=== PATIENT | male | born 1980 | race Two or more races ===

== ENCOUNTER 2020-05-08 20:03 | Emergency (ER) | payer SELFPAY ==
[~2020-05-08] VITALS: Ht 167.6 cm; Wt 65.0 kg
[2020-05-08] MEDS ORDERED: KETOROLAC 15MG/ML VIAL IV ONE (20:45)
[2020-05-08] MEDS ORDERED: MAGNESIUM/ALUMINUM HYDROXIDE/SIMETHICONE 30ML UDC PO ONE (21:00)
[2020-05-08] MEDS ORDERED: SODIUM CHLORIDE 0.9% 1,000 ML IV ONE (21:00)
[2020-05-08] MEDS ORDERED: ONDANSETRON HCL 4MG/2ML INJ IV ONE (21:00)
[2020-05-08] MEDS ORDERED: FAMOTIDINE 20MG/2ML VIAL IV ONE (21:00)
[2020-05-08 21:39] LABS: *BENZODIAZEPINES SCREEN URINE NEGATIVE (NEGATIVE)
[2020-05-08 21:40] LABS: *COCAINE SCREEN URINE NEGATIVE (NEGATIVE); CANNABINOID URINE SCREEN NEGATIVE (NEGATIVE); METHADONE URINE SCREEN NEGATIVE (NEGATIVE); OPIATES URINE SCREEN NEGATIVE (NEGATIVE); PHENCYCLIDINE URINE SCREEN NEGATIVE (NEGATIVE)
[2020-05-08 21:41] LABS: *AMPHETAMINES SCREEN URINE NEGATIVE (NEGATIVE); *BARBITURATES SCREEN URINE NEGATIVE (NEGATIVE)
[2020-05-08 22:11] LABS: EOSINOPHILS % 2.9 % (0.0-5.0); HEMOGLOBIN. 16.4 g/dL (14.0-18.0); LYMPHOCYTES % 41.8 % (20.0-50.0); MEAN CORPUSCULAR HEMOGLOBIN 30.9 pg (28.0-32.0); MEAN CORPUSCULAR VOLUME 90.7 fL (80.0-94.0); MONOCYTES % 7.5 % (2.0-8.0); NEUTROPHILS % 46.8 % (40.0-76.0); PLATELET 239 x1000/uL (130-400); RED BLOOD CELL COUNT 5.29 mill/uL (4.7-6.1); RED CELL DISTRIBUTION WIDTH 14.2 % (11.6-14.6)
[2020-05-08 22:15] LABS: CHLORIDE 108 mEq/L (98-107)
[2020-05-08 22:19] LABS: ETHANOL BLOOD 270 mg/dL
[2020-05-09 00:01] VITALS: BP 128/82
== END 2020-05-09 00:04 | disposition home or self-care (01) ==
LOC: ER 20:03
DX: R07.89 Other chest pain (principal); F19.10 Other psychoactive substance abuse, uncomplicated; F10.10 Alcohol abuse, uncomplicated; Z98.890 Other specified postprocedural states; Y90.8 Blood alcohol level of 240 mg/100 ml or more
CPT/HCPCS: 36415; 71045; 76705; 80053; 80305; 80307; 80320; 80329; 83690; 83880; 84484; 85025; 96361; 96374; 96375; 99285; J2405; J3490; J7030; G0480

== ENCOUNTER 2020-05-09 12:30 | Emergency (ER) | payer SELFPAY ==
[~2020-05-09] VITALS: Ht 172.7 cm; Wt 65.7 kg
[2020-05-09] MEDS ORDERED: ONDANSETRON HCL 4MG/2ML INJ IM ONE (13:45)
[2020-05-09 14:11] LABS: BG BASE EXCESS -1.6 mmol/L (-2.0-2.0); BG CARBOXYHEMOGLOBIN 0.7 % (0.5-1.5); BG DEOXYHEMOGLOBIN 2.1 % (0.0-5.0); BG HCO3 ACT 19.7 mmol/L (22.0-26.0); BG METHEMOGLOBIN 0.3 % (0.0-1.5); BG OXYGEN SATURATION 97.9 % (92.0-98.5); BG OXYHEMOGLOBIN 96.9 % (94.0-97.0); BG PH 7.498 (7.350-7.450); BG SAMPLE SITE RIGHT RADIAL; BG TOTAL HEMOGLOBIN 16.4 g/dL (12.0-18.0); BG VENT MODE ROOM AIR
[2020-05-09 15:00] VITALS: BP 128/78
== END 2020-05-09 15:00 | disposition home or self-care (01) ==
LOC: ER 12:30
DX: F41.9 Anxiety disorder, unspecified (principal); R06.4 Hyperventilation
CPT/HCPCS: 36600; 82375; 82805; 93005; 96372; 99284; J2405

== ENCOUNTER 2020-10-11 18:58 | Inpatient (IN) | payer SELFPAY ==
[~2020-10-11] VITALS: Ht 167.6 cm; Wt 77.6 kg
[2020-10-11] MEDS ORDERED: METOCLOPRAMIDE HCL 10MG/2ML VIAL IV ONE (20:45)
[2020-10-11] MEDS ORDERED: LACTATED RINGERS 1,000 ML IV SCH (20:45)
[2020-10-11 21:30] LABS: CHLORIDE 105 mEq/L (98-107)
[2020-10-11 21:32] LABS: BASOPHILS % 0.6 % (0.0-2.0); EOSINOPHILS % 0.2 % (0.0-5.0); HEMATOCRIT. 44.7 % (42.0-52.0); HEMOGLOBIN. 15.6 g/dL (14.0-18.0); LYMPHOCYTES % 20.9 % (20.0-50.0); MEAN CORPUSCULAR VOLUME 85.9 fL (80.0-94.0); MEAN PLATELET VOLUME 8.5 fl (7.4-10.4); NEUTROPHILS % 70.3 % (40.0-76.0); PLATELET 234 x1000/uL (130-400); RED BLOOD CELL COUNT 5.21 mill/uL (4.7-6.1); RED CELL DISTRIBUTION WIDTH 13.3 % (11.6-14.6)
[2020-10-11 21:34] LABS: ETHANOL BLOOD < 10 mg/dL
[2020-10-11] MEDS ORDERED: PHENOBARBITAL SODIUM 130MG/ML 1ML IV SCH (22:15)
[2020-10-12] MEDS ORDERED: PHENOBARBITAL INJ 260 MG in SODIUM CHLORIDE 0.9% 100 ML IV ONE (01:00)
[2020-10-12] MEDS ORDERED: ACETAMINOPHEN 325MG TABLET PO PRN ×2 (09:15)
[2020-10-12] MEDS ORDERED: CLONIDINE 0.1MG TABLET PO PRN (09:15)
[2020-10-12] MEDS ORDERED: IPRATROPIUM/ALBUTEROL 0.5-3(2.5)MG/3ML NEB HHN PRN (09:15)
[2020-10-12] MEDS ORDERED: DOCUSATE SODIUM 100MG CAPSULE PO PRN (09:15)
[2020-10-12] MEDS ORDERED: ONDANSETRON HCL 4MG/2ML INJ IV PRN (09:15)
[2020-10-12] MEDS ORDERED: LORAZEPAM 0.5MG TABLET PO PRN (09:15)
[2020-10-12] MEDS ORDERED: HYDROCODONE/ACETAMINOPHEN 5/325MG TABLET PO PRN (09:15)
[2020-10-12 10:36] VITALS: BP 128/81
[2020-10-12] MEDS: PANTOPRAZOLE SODIUM 40 MG/VIAL IV SCH (11:02)
[2020-10-12 12:20] VITALS: BP 127/82
[2020-10-12] MEDS: LACTATED RINGERS 1,000 ML IV SCH (13:47)
[2020-10-12 16:00] VITALS: BP 135/89
[2020-10-12] MEDS ORDERED: LORAZEPAM 2MG/ML CPJ IV PRN (18:30)
[2020-10-12 20:00] VITALS: BP 131/69
[2020-10-12] MEDS: MULTIVITAMINS,THER W-MINERALS TABLET PO SCH (21:31)
[2020-10-12] MEDS: THIAMINE HCL 100MG TABLET PO SCH (21:31)
[2020-10-12] MEDS: CHLORDIAZEPOXIDE 25MG CAPSULE PO SCH (21:32)
[2020-10-13] VITALS: BP 114/75
[2020-10-13] MEDS: LACTATED RINGERS 1,000 ML IV SCH ×2 (01:53→12:36)
[2020-10-13 04:10] VITALS: BP 124/88
[2020-10-13] MEDS: CHLORDIAZEPOXIDE 25MG CAPSULE PO SCH ×3 (06:14→21:10)
[2020-10-13 06:52] LABS: BASOPHILS % 0.7 % (0.0-2.0); EOSINOPHILS % 2.3 % (0.0-5.0); HEMATOCRIT. 43.5 % (42.0-52.0); LYMPHOCYTES % 26.9 % (20.0-50.0); MEAN CORPUSCULAR HEMOGLOBIN 30.5 pg (28.0-32.0); MEAN CORPUSCULAR VOLUME 88.6 fL (80.0-94.0); MEAN PLATELET VOLUME 8.9 fl (7.4-10.4); MONOCYTES % 7.2 % (2.0-8.0); NEUTROPHILS % 62.9 % (40.0-76.0); PLATELET 188 x1000/uL (130-400); RED BLOOD CELL COUNT 4.91 mill/uL (4.7-6.1); RED CELL DISTRIBUTION WIDTH 13.2 % (11.6-14.6)
[2020-10-13 07:34] LABS: CHLORIDE 106 mEq/L (98-107)
[2020-10-13 07:40] LABS: PHOSPHORUS 4.2 mg/dL (2.5-4.9)
[2020-10-13 08:00] VITALS: BP 101/66
[2020-10-13] MEDS: MULTIVITAMINS,THER W-MINERALS TABLET PO SCH (08:40)
[2020-10-13] MEDS: THIAMINE HCL 100MG TABLET PO SCH (08:40)
[2020-10-13] MEDS: PANTOPRAZOLE SODIUM 40 MG/VIAL IV SCH (08:40)
[2020-10-13] MEDS: FOLIC ACID 1MG TABLET PO SCH (08:40)
[2020-10-13 12:00] VITALS: BP 112/72
[2020-10-13 16:00] VITALS: BP 103/69
[2020-10-13 20:00] VITALS: BP 108/72
[2020-10-13] MEDS: FAMOTIDINE 20MG/2ML VIAL IV SCH (21:10)
[2020-10-14] VITALS: BP 105/72
[2020-10-14] MEDS: LACTATED RINGERS 1,000 ML IV SCH ×2 (02:48→11:19)
[2020-10-14 04:00] VITALS: BP 102/60
[2020-10-14 04:16] LABS: *AMPHETAMINES SCREEN URINE NEGATIVE (NEGATIVE); *BARBITURATES SCREEN URINE PRESUMTIVE POSITIVE (NEGATIVE); *BENZODIAZEPINES SCREEN URINE PRESUMTIVE POSITIVE (NEGATIVE); *COCAINE SCREEN URINE NEGATIVE (NEGATIVE); METHADONE URINE SCREEN NEGATIVE (NEGATIVE); OPIATES URINE SCREEN NEGATIVE (NEGATIVE)
[2020-10-14 04:17] LABS: CANNABINOID URINE SCREEN NEGATIVE (NEGATIVE); PHENCYCLIDINE URINE SCREEN NEGATIVE (NEGATIVE)
[2020-10-14] MEDS: CHLORDIAZEPOXIDE 25MG CAPSULE PO SCH ×2 (05:12→13:58)
[2020-10-14 08:14] VITALS: BP 107/74
[2020-10-14] MEDS: MULTIVITAMINS,THER W-MINERALS TABLET PO SCH (09:03)
[2020-10-14] MEDS: FAMOTIDINE 20MG/2ML VIAL IV SCH (09:03)
[2020-10-14] MEDS: THIAMINE HCL 100MG TABLET PO SCH (09:03)
[2020-10-14] MEDS: FOLIC ACID 1MG TABLET PO SCH (09:03)
[2020-10-14 11:48] VITALS: BP 106/64
[2020-10-14] MEDS ORDERED: L25 PO (13:59)
[2020-10-14 15:23] VITALS: BP 109/73
[2020-10-14 16:22] VITALS: BP 109/73
== END 2020-10-14 18:17 | disposition home or self-care (01) | DRG 241 ==
LOC: ER 18:58 → 6WST 10-12 00:49 → ENRESERV 10-12 07:28
PROVIDERS: ADMIT Internal Medicine; ATTEND Internal Medicine
DX: K29.70 Gastritis, unspecified, without bleeding (principal); D72.829 Elevated white blood cell count, unspecified; F10.939 Alcohol use, unspecified with withdrawal, unspecified
CPT/HCPCS: 36415; 74176; 80048; 80076; 80305; 80320; 83735; 84100; 85025; 93005; 96374; 99285; C9113; J2560; J2765; J3490; G0480

== ENCOUNTER 2021-10-03 04:52 | Emergency (ER) | payer MEDICAID ==
[~2021-10-03] VITALS: Ht 167.6 cm; Wt 78.0 kg
[~2021-10-03 04:52] MED LIST: FAMO-135 MT; L25 PO; MAG355OR21 MT
[2021-10-03 04:57] VITALS: BP 136/95
[2021-10-03 07:53] LABS: BASOPHILS % 1.1 % (0.0-2.0); EOSINOPHILS % 0.3 % (0.0-5.0); HEMATOCRIT. 48.5 % (42.0-52.0); HEMOGLOBIN. 17.2 g/dL (14.0-18.0); LYMPHOCYTES % 28.9 % (20.0-50.0); MEAN CORPUSCULAR HEMOGLOBIN 30.6 pg (28.0-32.0); MEAN CORPUSCULAR VOLUME 86.1 fL (80.0-94.0); MEAN PLATELET VOLUME 8.3 fl (7.4-10.4); MONOCYTES % 10.3 % (2.0-8.0); NEUTROPHILS % 59.4 % (40.0-76.0); PLATELET 265 x1000/uL (130-400); RED BLOOD CELL COUNT 5.63 mill/uL (4.7-6.1); RED CELL DISTRIBUTION WIDTH 13.8 % (11.6-14.6)
[2021-10-03 08:01] LABS: CHLORIDE 102 mEq/L (98-107)
[2021-10-03] MEDS ORDERED: MAGNESIUM/ALUMINUM HYDROXIDE/SIMETHICONE 30ML UDC PO STA (09:28)
[2021-10-03] MEDS ORDERED: ACETAMINOPHEN 325MG TABLET PO STA (09:28)
[2021-10-03] MEDS ORDERED: ONDANSETRON 4MG ODT PO NR (11:30)
== END 2021-10-03 11:45 | disposition home or self-care (01) ==
LOC: ER 04:59
DX: R10.0 Acute abdomen (principal); R11.2 Nausea with vomiting, unspecified; R07.89 Other chest pain; F10.10 Alcohol abuse, uncomplicated; Y90.9 Presence of alcohol in blood, level not specified; I10 Essential (primary) hypertension
CPT/HCPCS: 36415; 71045; 80053; 83690; 83880; 84484; 85025; 93005; 99285; Q0162